=== PATIENT | female | born 1980 | race Two or more races ===

== ENCOUNTER 2018-04-09 10:03 | Outpatient (CLI) | payer OTHER ==
[~2018-04-09] VITALS: Ht 162.6 cm; Wt 63.5 kg
== END 2018-04-09 10:15 | disposition home or self-care (01) ==
LOC: OFIC 805 10:03
DX: H60.8X3 Other otitis externa, bilateral (principal); H61.23 Impacted cerumen, bilateral

== ENCOUNTER 2018-04-20 09:04 | Outpatient (CLI) | payer OTHER ==
[~2018-04-20] VITALS: Ht 152.4 cm; Wt 63.5 kg
== END 2018-04-20 15:10 | disposition home or self-care (01) ==
LOC: OFIC 805 09:04
DX: H93.8X3 Other specified disorders of ear, bilateral (principal); H61.23 Impacted cerumen, bilateral

== ENCOUNTER 2019-06-19 10:34 | Emergency (ER) | payer OTHER ==
[~2019-06-19] VITALS: Ht 162.6 cm; Wt 63.5 kg
[2019-06-19] MEDS ORDERED: PERCOCET 5-3251 EACH PO (12:18)
== END 2019-06-19 12:40 | disposition home or self-care (01) ==
LOC: ER 10:34
DX: M54.5 Low back pain (principal)

== ENCOUNTER → 2019-07-17 | Emergency (ER) | payer OTHER ==
[~2019-07-17] VITALS: Ht 162.6 cm; Wt 59.0 kg
[~2019-07-17] MED LIST: PERCOCET 5-3251 EACH PO
== END | disposition designated cancer center or children's hospital (05) ==
LOC: ER 08:23
DX: K29.60 Other gastritis without bleeding (principal); R10.13 Epigastric pain